=== PATIENT | female | born 1985 | race African-American/Black ===

== ENCOUNTER 2024-10-08 01:24 | Emergency (ER) | payer MEDICAID ==
[~2024-10-08] VITALS: Ht 175.3 cm; Wt 127.0 kg
[2024-10-08] MEDS ORDERED: POLY10DR OP (03:09)
[2024-10-08 03:13] VITALS: BP 159/79; TEMP 98.5; O2SAT 97
== END 2024-10-08 03:14 | disposition home or self-care (01) ==
LOC: ER 01:31
DX: H57.89 Other specified disorders of eye and adnexa (principal)